=== PATIENT | female | born 1970 | race African-American/Black ===

== ENCOUNTER 2024-10-22 13:31 | Emergency (ER) | payer BC, SELFPAY ==
[2024-10-22 13:50] VITALS: BP 89/64; PULSE 15; RESP 94; TEMP 36.6; O2SAT 99
[2024-10-22 13:53] VITALS: BP 86/66
[2024-10-22 14:12] LABS: Basophils Percent Auto 0.7 % (0.2-1.2); Eosinophils Percent Auto 0.9 % (0-4.4); Hemoglobin 14.2 g/dL (12.0-15.0); Immature Granulocyte Absolute 0.01 K/mm3 (0.00-0.031); Immature Granulocyte Percent A 0.2 % (0-0.5); Lymphocytes Absolute Auto 1.18 K/mm3 (0.9-3.2); Lymphocytes Percent Auto 27.6 % (18.3-44.2); Mean Corpuscular HGB Conc 32.3 g/dl (32-36); Mean Corpuscular Volume 89.8 fl (80-100); Mean Platelet Volume 9.4 fl (7.4-10.4); Monocytes Absolute Auto 0.3 K/mm3 (0.1-0.6); Monocytes Percent Auto 7.9 % (2.6-8.5); Neutrophils Absolute Auto 2.7 K/mm3 (1.3-6.7); Neutrophils Percent Auto 62.7 % (45.5-73.1); Platelet Count Result 279 k/mm3 (150-375); Red Cell Distribution Width 12.9 % (11.5-14.5); White Blood Count 4.3 K/mm3 (4.5-10.0)
[2024-10-22 14:26] LABS: Alanine Aminotransferase 13 U/L (6-35); Albumin Level 4.1 g/dL (3.5-5.1); Alkaline Phosphatase 71 U/L (38-126); Anion Gap 10 mmol/L (4-12); Aspartate Amino Transferase 19 U/L (14-36); Bilirubin,Total 0.7 mg/dL (0.2-1.3); Blood Urea Nitrogen 14 mg/dL (7-17); Carbon Dioxide 27 mmol/L (22-30); Chloride 101 mmol/L (98-107); Estimated CRCL calculation 46 ml/min; Estimated Glomerular Filt Rate 43; Glucose 101 mg/dL (65-110); Potassium 3.8 mmol/L (3.4-5.0); Sodium 138 mmol/L (137-145)
[2024-10-22 14:40] LABS: BEDSIDEPREGUCG Negative (Negative)
[2024-10-22 15:06] LABS: Add Urine Microscopic? YES; Appearance Urine Turbid (Clear); Bacteria Urine 3+ /hpf; Bilirubin Urine 2+ (Negative); Blood Urine Negative (Negative); Color Urine Dark Yellow (Yellow); Glucose Urine UA Negative (Negative); Hyaline Casts Urine Present /lpf; Ketones Urine 1+ mg/dL (Negative); Leukocyte Esterase Ur 2+ LEU/UL (Negative); Need Manual Microscopic Reviewed; Nitrate Urine Positive (Negative); Non Pathogenic Casts >20; Protein Urine 2+ mg/dL (Negative); Specific Grav Ur 1.024 (1.001-1.035); Squamous Epithelial Cell Urine Many /hpf (Few); pH Urine 5.5 (5.0-9.0)
--- OUTSIDE RECORDS SUMMARY | 2024-10-22 15:10 | XMS_ITS | Clinical Summary ---
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 Gender Identity Not on file Sexual Orientation Not on file Last Filed Vital Signs Vital Sign Reading Time Taken Comments Blood Pressure 119/84 04/23/2022 9:06 AM CDT Pulse 86 04/23/2022 9:06 AM CDT Temperature 36.5 C (97.7 F) 04/23/2022 9:06 AM CDT Respiratory Rate 14 04/23/2022 9:06 AM CDT Oxygen Saturation 100% 04/23/2022 9:06 AM CDT Inhaled Oxygen Concentration - - Weight 81.6 kg (180 lb) 04/23/2022 9:06 AM CDT Height 167.6 cm (5' 6 ) 04/23/2022 9:06 AM CDT Body Mass Index 29.05 04/23/2022 9:06 AM CDT Plan of Treatment Health Maintenance Due Date Last Done Comments DTAP/TDAP/TD VACCINES (1 - Tdap) 1987 HEPATITIS B VACCINES (1 of 3 - 19+ 3-dose series) 1987 HPV/Cotest (21-29) 1989 PAP SMEAR 1989 CERVICAL CANCER SCREENING 1998 HPV/Cotest (30-65) 1998 PAP SMEAR 1998 BREAST CANCER SCREENING 2008 COLORECTAL SCREENING 2013 Colorectal Cancer Screening 2013 FIT-DNA Q 3 years 2013 FIT/FOBT Q 1 year 2013 Flex Sig/CT Colonography Q 5 years 2013 ZOSTER VACCINE (1 of 2) 2018 INFLUENZA VACCINE (#1) 2024 PNEUMOCOCCAL VACCINE 0-49 YEARS Aged Out No longer eligible based on patient's age to complete this topic Insurance [facility]
--- OUTSIDE RECORDS SUMMARY | 2024-10-22 15:10 | XMS_ITS | Clinical Summary ---
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 This disclosure is being madepursuant to the Care Everywhere program and may not contain all information available regarding this patient. Last updated 18.[facility] Allergies No known active allergies Medications * Be aware that medications may not be up to date on this document. Alwaysverify current medications with the patient. doxycycline monohydrate 100 MG capsule Take 100 mg by mouth BID. 60 capsule 3 7 Active tretinoin (RETIN-A) 0.05 % cream 20 g 11 7 Active citalopram (CELEXA) 40 MG tablet 7 Active ibuprofen (MOTRIN) 800 MG tablet Take 1 tablet by mouth 3 times daily as needed for Pain 20 tablet 9 Active HYDROcodone-destiney taminophen (NORCO) 5-325 MG tablet Take 1 tablet by mouth every 6 hours as needed for Pain 12 tablet 9 Active citalopram (CELEXA) 40 MG tablet Take 1 tablet by mouth once daily 30 tablet 9 Active ibuprofen (MOTRIN) 800 MG tablet Take 1 (one) tablet by mouth every 6 hours as needed for Pain 30 tablet 1 Active simethicone (MYLICON) 80 MG chew tablet Take 1 (one) tablet by mouth 4 times daily as needed for Gas Pain 100 tablet 1 Active acetaminophen (TYLENOL) 500 MG tablet Take 2 (two) tablets by mouth every 4 hours as needed for Fever or Pain Maximum allowable Acetaminophen amount = 4 Grams (4000 mg) / 24 hours. 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 Gender Identity Not on file Sexual Orientation Not on file Last Filed Vital Signs Vital Sign Reading Time Taken Comments Blood Pressure 130/89 09/21/2020 12:55 PM CDT Pulse 92 09/21/2020 12:55 PM CDT Temperature 36.8 C (98.3 F) 09/21/2020 12:55 PM CDT Respiratory Rate 20 09/21/2020 12:55 PM CDT Oxygen Saturation 96% 09/21/2020 12:55 PM CDT Inhaled Oxygen Concentration - - Weight 85.7 kg (189 lb) 09/21/2020 10:19 AM CDT Height 170.2 cm (5' 7 ) 09/21/2020 10:19 AM CDT Body Mass Index 29.6 09/21/2020 10:19 AM CDT Plan of Treatment Health Maintenance Due Date Last Done Comments COLOGUARD (AGES 45-75) - COL ON CA SCREENING 1968 COLON MONITORING 1968 COLONOSCOPY - COLON CA SCREENING 1968 CT COLONOGRAPHY - COLON CA SCREENING 1968 Colorectal Cancer Screening 1968 FIT - COLON CA SCREENING 1968 FLEX SIG - COLON CA SCREENING 1968 LIPID TESTING 1968 MAMMOGRAM 1968 HIV SCREENING 1983 HEPATITIS C SCREENING 07/30/1986 DTAP/TDAP/TD VACCINES (1 - Tdap) 1987 HEPATITIS B VACCINE (1 of 3 - 19+ 3-dose series) 1987 PNEUMOCOCCAL VACCINE 50+ (1 of 1 - PCV) 2018 ZOSTER VACCINE (1 of 2) 2018 COVID-19 VACCINE (1 - 2023-2 5 season) 2024 DEPRESSION SCREENING 07/07/2024 INFLUENZA VACCINE (Season Ended) 2025 HIB VACCINE Aged Out No longer eligi ble based on patient's age to complete this topic HPV VACCINE Aged Out No longer eligi ble based on patient's age to complete this topic MENINGOCOCCAL (Group B) VACC INE SHARED DECISION-MAKING Aged Out No longer eligibl e based on patient's age to complete this topic MENINGOCOCCAL GROUPS A/C/Y/W VACCINE Aged Out No longer eligible b ased on patient's age to complete this topic Insurance [facility] [place] [address]
[2024-10-22] MEDS: SODIUM CHLORIDE 0.9% IV 1,000 ML 999 ML IV CONT ×2 (15:37)
[2024-10-22 15:38] VITALS: BP 105/67; PULSE 80; RESP 15; O2SAT 100
--- NOTE | 2024-10-22 16:15 | ED_ITS ---
HPI - General Adult General Chief complaint: Weakness Stated complaint: dehydrated Time Seen by Provider: 10/22/24 14:11 Source: patient Mode of arrival: ambulatory Limitations: no limitations History of Present Illness HPI narrative: 54-year-old otherwise healthy who here with a complaint of feeling dehydrated and lightheaded. Patient states that for past 1 week she has not been eating or drinking enough states lot of stress. While she was [facility] the [place] [facility] her mother fell lightheaded and dizzy was about to pass out. Patient states that she had glass of water and drove herself here to the ER. She presently denies having any headache or chest pain or abdominal pain. Denies any nausea vomiting or diarrhea. Onset (ago): day(s) (1) Severity: moderate Relieving factors: none Exacerbating factors: none Associated symptoms: denies other symptoms Related Data Allergies Allergy/AdvReac Type Severity Reaction Status Date / Time No Known Allergies Allergy Verified 10/22/24 13:33 Review of Systems 2 Review of Systems: All systems reviewed & are unremarkable except as noted in HPI and below Constitutional: Constitutional: Reports no additional constitutional complaints Eyes: Eyes: Reports no additional eye complaints ENT: Reports system reviewed and no additional complaints, except as documented Cardiovascular: Cardiovascular: Reports as per HPI Respiratory: Respiratory: Reports no additional respiratory complaints Gastrointestinal: Gastrointestinal: Reports no additional gastrointestinal complaints Musculoskeletal: Musculoskeletal: Reports no additional musculoskeletal complaints Integumentary/Breasts: Skin/Breast: Reports system reviewed and no additional complaints, except as docu Neurologic: Reports system reviewed and no additional complaints, except as documented Psychiatric: Psychiatric: Reports no additional psychiatric complaints Exam 2 Narrative: GENERAL: Well-appearing, well-nourished, and in no acute distress. HEAD: Normocephalic, atraumatic. EYES: PERRLA and EOMI. ENT: Nares clear, no rhinorrhea or epistaxis. Mucous membranes moist. NECK: Supple. CHEST: Clear to auscultation. No respiratory distress. HEART: Regular rate and rhythm. No murmur heard. Normal peripheral pulses. ABDOMEN: Soft, nontender, nondistended, normal active bowel sounds. EXTREMITIES: Normal range of motion. No edema. SKIN: Warm, dry, no rash. NEURO: No focal deficits. Alert and oriented x3. PSYCH: Normal mood and affect. Course Course Emergency Course: Notified patient about her lab work. She is feeling much better after IV fluids. Advised her to take antibiotic as prescribed for UTI. Vital Signs Vital signs: Vital Signs Temperature 36.6 C 10/22/24 13:50 Pulse Rate 15 L 10/22/24 13:50 Respiratory Rate 94 H 10/22/24 13:50 Blood Pressure 89/64 L 10/22/24 13:50 Pulse Oximetry 99 10/22/24 13:50 Oxygen Delivery Room Air 10/22/24 13:50 Temperature 36.6 C 10/22/24 13:50 Pulse Rate 80 10/22/24 15:38 Respiratory Rate 15 10/22/24 15:38 Blood Pressure 105/67 10/22/24 15:38 Pulse Oximetry 100 10/22/24 15:38 Oxygen Delivery Room Air 10/22/24 13:50 Medical Decision Making Vital Signs Vital Signs: Vital Signs Temperature 36.6 C 10/22/24 13:50 Pulse Rate 15 L 10/22/24 13:50 Respiratory Rate 94 H 10/22/24 13:50 Blood Pressure 89/64 L 10/22/24 13:50 Pulse Oximetry 99 10/22/24 13:50 Oxygen Delivery Room Air 10/22/24 13:50 Temperature 36.6 C 10/22/24 13:50 Pulse Rate 80 10/22/24 15:38 Respiratory Rate 15 10/22/24 15:38 Blood Pressure 105/67 10/22/24 15:38 Pulse Oximetry 100 10/22/24 15:38 Oxygen Delivery Room Air 10/22/24 13:50 Lab Data 10/22/24 14:01 10/22/24 14:01 Labs: Lab Results 10/22/24 10/22/24 10/22/24 Range/Units 14:01 14:38 14:39 WBC 4.3 L (4.5-10.0) K/mm3 RBC 4.90 (4.2-5.4) M/mm3 Hgb 14.2 (12.0-15.0) g/dL Hct 44.0 (37.0-47.0) % MCV 89.8 (80-100) fl MCH 29.0 (26-34) pg MCHC 32.3 (32-36) g/dl RDW 12.9 (11.5-14.5) % Plt Count 279 (150-375) k/mm3 MPV 9.4 (7.4-10.4) fl Immature Gran % (Auto) 0.2 (0-0.5) % Neut % (Auto) 62.7 (45.5-73.1) % Lymph % (Auto) 27.6 (18.3-44.2) % [place] % (Auto) 7.9 (2.6-8.5) % Eos % (Auto) 0.9 (0-4.4) % Baso % (Auto) 0.7 (0.2-1.2) % Lymph # (Auto) 1.18 (0.9-3.2) K/mm3 [place] # (Auto) 0.3 (0.1-0.6) K/mm3 Eos # (Auto) 0.0 (0-0.3) K/mm3 Baso # (Auto) 0.0 (0.0-0.1) K/mm3 Abs Immat Gran (auto) 0.01 (0.00-0.031) K/mm3 Absolute Neuts (auto) 2.7 (1.3-6.7) K/mm3 Absolute Nucleated RBC 0.000 (0.0-0.012) K/mm3 Nucleated RBC % 0.0 (0.0-0.2) % Sodium 138 (137-145) mmol/L Potassium 3.8 (3.4-5.0) mmol/L Chloride 101 (98-107) mmol/L Carbon Dioxide 27 (22-30) mmol/L Anion Gap 10 (4-12) mmol/L BUN 14 (7-17) mg/dL Creatinine 1.28 H (0.7-1.0) mg/dL Estim Creat Clear Calc 46 ml/min Estimated GFR 43 L (59 - ) Glucose 101 (65-110) mg/dL Calcium 9.0 (8.4-10.2) mg/dL Total Bilirubin 0.7 (0.2-1.3) mg/dL AST 19 (14-36) U/L ALT 13 (6-35) U/L Alkaline Phosphatase 71 (38-126) U/L Total Protein 8.0 (6.3-8.2) g/dL Albumin 4.1 (3.5-5.1) g/dL Urine Color Dark yellow (Yellow) Urine Appearance Turbid H (Clear) Urine pH 5.5 (5.0-9.0) Ur Specific [place] 1.024 (1.001-1.035) Urine Protein 2+ H (Negative) mg/dL Urine Glucose (UA) Negative (Negative) mg/dL Urine Ketones 1+ H (Negative) mg/dL Ur Blood (Man) Negative (Negative) Urine Nitrate Positive H (Negative) Urine Bilirubin 2+ H (Negative) Urine Urobilinogen 1.0 (<2.0) mg/dL Add Ur Microanalysis Reviewed Leukocyte Esterase Rfl 2+ H (Negative) ALMAZ/UL Urine RBC 6-10 H (0-2) /hpf Urine WBC 6-10 H (0-3) /hpf Ur Squamous Epith Cells Many H (Few) /hpf Urine Bacteria 3+ H /hpf Urine Casts >20 Hyaline Casts Present (None) /lpf POC Urine HCG, Qual Negative (Negative) Discharge Plan Discharge Clinical Impression: Dehydration UTI (urinary tract infection) Qualifiers: Urinary tract infection type: acute cystitis Hematuria presence: without hematuria Qualified Code(s): N30.00 - Acute cystitis without hematuria Patient Disposition: Home Condition: Stable Instructions: Dehydration (DC), Urinary Tract Infection in Women (DC) Additional Instructions: Drink more fluids, take antibiotic as prescribed he Patient Language: Chilean Prescriptions: New ciprofloxacin HCl 500 mg tablet 250 mg PO Q12H Qty: 10 0RF Follow-up/Referrals: UNKNOWN,DOCTOR [Primary Care Provider] - Time of Disposition: 16:21
[2024-10-22 16:55] VITALS: BP 116/76; PULSE 79; RESP 23; O2SAT 99
== END 2024-10-22 16:56 | disposition home or self-care (01) ==
PROVIDERS: Emergency Provider Family Medicine
DX: N30.00 Acute cystitis without hematuria (principal); E86.0 Dehydration
CPT/HCPCS: 36415; 80053; 81001; 81025; 85025; 96360; 96361; 99283; J7030